=== PATIENT | male | born 1980 | race Two or more races ===

== ENCOUNTER 2024-02-06 01:31 | Emergency (ER) | payer OTHER ==
[~2024-02-06] VITALS: Ht 165.1 cm; Wt 68.5 kg
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
[2024-02-06 02:13] VITALS: BP 104/64; PULSE 94; RESP 18; TEMP 98.2; O2SAT 96
== END 2024-02-06 02:21 | disposition home or self-care (01) ==
LOC: ER 01:31
DX: R55 Syncope and collapse (principal); F10.90 Alcohol use, unspecified, uncomplicated; V89.2XXA Person injured in unspecified motor-vehicle accident, traffic, initial encounter; Y93.89 Activity, other specified; Y92.89 Other specified places as the place of occurrence of the external cause; Y99.8 Other external cause status